=== PATIENT | male | born 1970 | race Caucasian/White ===

== ENCOUNTER 2018-12-30 08:05 | Outpatient (CLI) | payer OTHER ==
[2019-01-07] MEDS ORDERED: NEURIN PO (10:06)
[2019-01-07] MEDS ORDERED: SYNTH PO (10:10)
[2019-01-07] MEDS ORDERED: LEVOXYL50 MCG PO (13:16)
== END 2018-12-30 11:33 | disposition home or self-care (01) ==
LOC: NUCLEAR 08:05
DX: C20 Malignant neoplasm of rectum (principal)
CPT/HCPCS: 78815; A9552

== ENCOUNTER 2019-01-09 06:00 | Day surgery (SDC) | payer OTHER ==
[~2019-01-09 06:00] MED LIST: LEVOXYL50 MCG PO; NEURIN PO; SYNTH PO
[2019-01-09] MEDS ORDERED: PERCOCET 5-3251 EACH PO (09:07)
== END 2019-01-09 12:40 | disposition home or self-care (01) ==
LOC: CIR.AMB 06:00
DX: C20 Malignant neoplasm of rectum (principal)
CPT/HCPCS: 36561; C1751

== ENCOUNTER 2020-06-15 15:18 | Outpatient (CLI) | payer OTHER ==
[~2020-06-15 15:18] MED LIST changes: +PERCOCET 5-3251 EACH PO
== END 2020-06-15 15:29 | disposition home or self-care (01) ==
LOC: RAD 15:18
PROVIDERS: ATTEND Surgery
DX: C20 Malignant neoplasm of rectum (principal); R59.0 Localized enlarged lymph nodes; K62.5 Hemorrhage of anus and rectum

== ENCOUNTER 2020-07-01 07:19 | Day surgery (SDC) | payer OTHER ==
[~2020-07-01 07:19] MED LIST changes: +COZAAR50 MG PO
[2020-07-01] MEDS ORDERED: PERCOCET 5-3251 EACH PO (09:59)
== END 2020-07-01 12:50 | disposition home or self-care (01) ==
LOC: CIR.AMB 07:19
PROVIDERS: ATTEND Surgery
DX: C20 Malignant neoplasm of rectum (principal); Z20.828 Contact with and (suspected) exposure to other viral communicable diseases

== ENCOUNTER 2023-01-11 13:14 | Outpatient (CLI) | payer OTHER | END 2023-01-11 13:34 | disposition home or self-care (01) | LOC: MRI 13:14 | PROVIDERS: ATTEND General Practice | DX: M54.2 Cervicalgia (principal); M62.830 Muscle spasm of back; M54.9 Dorsalgia, unspecified; N20.0 Calculus of kidney; M25.511 Pain in right shoulder; M77.11 Lateral epicondylitis, right elbow | CPT/HCPCS: 72141 ==